=== PATIENT | female | born 2000 | race Caucasian/White ===

== ENCOUNTER → 2021-01-26 12:49 | Outpatient (CLI) | payer BC, SELFPAY ==
--- NOTE | ~2021-01-26 | XR_ITS ---
EXAMINATION: XR chest 2V DATE: 01/26/2021 13:12 INDICATION: Fever and cough TECHNIQUE: PA and lateral views of the chest are obtained. COMPARISON: None available FINDINGS: There are minimal airspace opacities of the left lung base. There is no pleural effusion or pneumothorax. The cardiomediastinal silhouette is normal. The visualized bones and soft tissues are unremarkable. IMPRESSION: 1. Left basilar airspace opacity, consistent with atelectasis versus pneumonia. Reviewed, dictated and finalized at location B. [facility]
== END ==
PROVIDERS: PCP Pediatrics Adolescent Medicine; Visit Provider Pediatrics Adolescent Medicine
DX: R50.9 Fever, unspecified (principal); R05.9 Cough, unspecified
CPT/HCPCS: 71046